=== PATIENT | male | born 1995 | race African-American/Black ===

== ENCOUNTER 2019-04-10 19:25 | Emergency (ER) | payer MEDICAID, OTHER ==
--- NOTE | 2019-04-10 20:19 | NUR ---
CALLED PT TO BE TRIAGED 3X, NO ANSWER
--- NOTE | 2019-04-10 20:38 | NUR ---
CALLED PT TO BE TRIAGED 3X, NO ANSWER
== END 2019-04-10 20:38 | disposition left against medical advice (07) ==
LOC: ER 19:32
DX: Z53.21 Procedure and treatment not carried out due to patient leaving prior to being seen by health care provider (principal)

== ENCOUNTER 2019-05-27 20:27 | Emergency (ER) | payer OTHER ==
[~2019-05-27] VITALS: Ht 180.3 cm; Wt 60.1 kg
--- NOTE | 2019-05-27 20:56 | NUR ---
BIBSELF. C/O "LAC ON EYEBROW, FELL DOWN AFTER GLF" -SOB AOX4. VSS. AMBULATORY
[2019-05-27] MEDS ORDERED: LIDOCAINE 1%-EPI 1:100,000 20 ML VIAL ONE (21:18)
[2019-05-27] MEDS ORDERED: ACETAMINOPHEN ES 500 MG TABLET ONE (21:19)
[2019-05-27] MEDS ORDERED: ACETAMINOPHEN ES 500 MG TABLET PO ONE (21:30)
[2019-05-27] MEDS ORDERED: LIDOCAINE 1%-EPI 1:100,000 20 ML VIAL TP ONE (21:30)
[2019-05-27 22:17] VITALS: BP 122/70
== END 2019-05-27 22:18 | disposition home or self-care (01) ==
LOC: ER 20:36
DX: S01.111A Laceration without foreign body of right eyelid and periocular area, initial encounter (principal); S93.524A Sprain of metatarsophalangeal joint of right lesser toe(s), initial encounter; F41.9 Anxiety disorder, unspecified; W01.0XXA Fall on same level from slipping, tripping and stumbling without subsequent striking against object, initial encounter; Y93.01 Activity, walking, marching and hiking; Y92.89 Other specified places as the place of occurrence of the external cause; Y99.8 Other external cause status
CPT/HCPCS: 12011; 73120; 99283; J3490

== ENCOUNTER 2019-06-05 20:42 | Emergency (ER) | payer OTHER | END 2019-06-05 21:51 | disposition left against medical advice (07) | LOC: ER 20:45 | DX: Z53.21 Procedure and treatment not carried out due to patient leaving prior to being seen by health care provider (principal) ==

== ENCOUNTER 2019-06-07 13:47 | Emergency (ER) | payer OTHER ==
[~2019-06-07] VITALS: Ht 180.3 cm; Wt 59.9 kg
[2019-06-07 13:59] VITALS: BP 137/81
== END 2019-06-07 14:14 | disposition home or self-care (01) ==
LOC: ER 13:47
DX: S01.111D Laceration without foreign body of right eyelid and periocular area, subsequent encounter (principal); F41.0 Panic disorder [episodic paroxysmal anxiety]; X58.XXXD Exposure to other specified factors, subsequent encounter